=== PATIENT | male | born 1930 | race Caucasian/White ===

== ENCOUNTER 2016-10-02 13:28 | Observation (INO) | payer MEDICARE ==
[~2016-10-02] VITALS: Ht 170.2 cm; Wt 70.1 kg
[2016-10-02] VITALS (7 sets, daily range): BP systolic 101–120; BP diastolic 53–59; PULSE 59–67; RESP 16–20; TEMP 96.4–98; O2SAT 92–100
--- NOTE | 2016-10-02 14:50 | PD ---
HPI Chief Complaint: anemia Time Seen by Provider: 14:38 Travel History International Travel<30 days: No Contact w/Intl Traveler<30days: No History of Present Illness HPI 85 year-old man, no widening medical history, presents referred over from [facility] for low hemoglobin. Review of records shows that he was admitted to [facility] 5 days ago for what sounds like pneumonia. He had been admitted to [facility] on September 24. He's been treated with Levaquin. He apparently was referred to the emergency department today for low hemoglobin. Review of lab shows Hemoglobin 7.3 yesterday, 7.2 on 09/28, it was 9.5 on admission to the hospital. Medical record shows the patient is normally bedridden due to multiple CVAs, has CAD with previous CABG, and has A. fib and is on warfarin. They were trending his INR is at his most recent INR was 1.6 yesterday. History Past Medical History Narrative Medical Multiple CVAs CAD, history of CABG, pacemaker A. fib, on warfarin COPD CHF Hyperlipidemia Hypertension Hypothyroidism Social History Tobacco Use: No Allergies-Medications (Allergen,Severity, Reaction): Coded Allergies: Sulfa (Verified Allergy, Unknown, 10/02/16) Reported Meds & Prescriptions Reported Meds & Active Scripts Active Reported Levothyroxine (Levothyroxine Sodium) 50 Mcg Tab 50 Mcg PO DAILY Rosuvastatin (Rosuvastatin Calcium) 10 Mg Tab 10 Mg PO HS Lisinopril 2.5 Mg Tab 2.5 Mg PO DAILY Metoprolol Tartrate 50 Mg Tab 50 Mg PO BID Warfarin 5 Mg Tab 5 Mg PO DAILY Vitamin D2 (Ergocalciferol) 2,000 Unit Tab 50,000 Units PO WEEKLY Potassium Chloride ER (Potassium Chloride) 20 Meq Tab 20 Meq PO DAILY Digoxin 0.125 Mg Tab 0.125 Mg PO DAILY Furosemide 40 Mg Tab 40 Mg PO DAILY Tamsulosin (Tamsulosin HCl) 0.4 Mg Cap 0.4 Mg PO HS Review of Systems ROS Limitations: Clinical Condition Physical Exam Narrative GENERAL: Chronically ill-appearing 85-year-old man, awake and alert however not really responding to questions. SKIN: Warm and dry. Decreased skin turgor. HEAD: Atraumatic. Normocephalic. EYES: Pupils equal and round. No scleral icterus. No injection or drainage. Conjunctival pallor. ENT: No nasal bleeding or discharge. Mucous membranes pink and moist. NECK: Trachea midline. No JVD. CARDIOVASCULAR: Regular rate and rhythm. No murmur appreciated. RESPIRATORY: No accessory muscle use. Clear to auscultation. Breath sounds equal bilaterally. GASTROINTESTINAL: Abdomen soft, non-tender, nondistended. Hepatic and splenic margins not palpable. MUSCULOSKELETAL: No obvious deformities. Bilateral lower extremity pitting edema, right greater than left. NEUROLOGICAL: Awake and alert. General is weakness but no obvious focal deficits. No facial asymmetry. Data Data Last Documented VS Vital Signs Date Time Temp Pulse Resp B/P Pulse Ox O2 Delivery O2 Flow Rate FiO2 10/02/16 15:09 62 18 97 Nasal Cannula 2 10/02/16 14:45 97.3 101/58 Orders Complete Blood Count With Diff (10/02/16 14:39) Comprehensive Metabolic Panel (10/02/16 14:39) Act Partial Throm Time (Ptt) (10/02/16 14:39) Prothrombin Time / Inr (Pt) (10/02/16 14:39) Iv Access Insert/Monitor (10/02/16 14:39) Type And Screen (10/02/16 14:39) Red Blood Cells (Rbc) (10/02/16 14:39) Place In Observation (10/02/16 ) Blood Product Administration .UPON TRANSFUSION (10/02/16 16:28) Sodium Chlor 0.9% 250 Ml Inj (Ns 250 Ml (10/02/16 16:30) Admit Order (Ed Use Only) (10/02/16 ) Labs Laboratory Tests Test 10/02/16 14:50 White Blood Count 8.5 TH/MM3 Red Blood Count 2.68 MIL/MM3 Hemoglobin 7.9 GM/DL Hematocrit 23.6 % Mean Corpuscular Volume 88.0 FL Mean Corpuscular Hemoglobin 29.6 PG Mean Corpuscular Hemoglobin 33.6 % Concent Red Cell Distribution Width 15.9 % Platelet Count 227 TH/MM3 Mean Platelet Volume 8.4 FL Neutrophils (%) (Auto) 73.0 % Lymphocytes (%) (Auto) 18.4 % Monocytes (%) (Auto) 5.8 % Eosinophils (%) (Auto) 2.6 % Basophils (%) (Auto) 0.2 % Neutrophils # (Auto) 6.2 TH/MM3 Lymphocytes # (Auto) 1.6 TH/MM3 Monocytes # (Auto) 0.5 TH/MM3 Eosinophils # (Auto) 0.2 TH/MM3 Basophils # (Auto) 0.0 TH/MM3 CBC Comment DIFF FINAL Differential Comment Prothrombin Time 17.5 SEC Prothromb Time International 1.6 RATIO Ratio Activated Partial 32.8 SEC Thromboplast Time Sodium Level 145 MEQ/L Potassium Level 4.0 MEQ/L Chloride Level 108 MEQ/L Carbon Dioxide Level 29.8 MEQ/L Anion Gap 7 MEQ/L Blood Urea Nitrogen 38 MG/DL Creatinine 1.46 MG/DL Estimat Glomerular Filtration 46 ML/MIN Rate Random Glucose 98 MG/DL Calcium Level 7.9 MG/DL Total Bilirubin 0.9 MG/DL Aspartate Amino Transf 33 U/L (AST/SGOT) Alanine Aminotransferase 22 U/L (ALT/SGPT) Alkaline Phosphatase 88 U/L Total Protein 5.7 GM/DL Albumin 2.2 GM/DL Blood Type A POSITIVE Antibody Screen NEGATIVE Crossmatch Leukocyte-Reduced Red Blood Cells Blood Bank Comment [facility] Medical Decision Making Medical Screen Exam Complete: Yes Emergency Medical Condition: Yes Interpretation(s) LABS: CBC remarkable for hemoglobin 7.9. Coags remarkable for an INR 1.6 CMP is elevated BUN and creatinine, low protein Differential Diagnosis Anemia, GI bleed, regular but they, infection, other Narrative Course Medical decision making INITIAL: 85-year-old male presents emergency Department with anemia following hospitalization for pneumonia, on warfarin for A. fib, we'll check labs, type and screen, will discuss with Dr. Olson, likely admission for transfusion. FINAL: Spoke with Dr. Olson. Likely admit patient for transfusion of 2 units of blood. GI consult. Order was placed. I spoke to the son on the phone who consented for blood transfusion. Diagnosis Primary Impression: Anemia Qualified Code: D64.9 - Anemia, unspecified type Additional Impression: GI bleed Qualified Code: K92.2 - Gastrointestinal hemorrhage, unspecified gastrointestinal hemorrhage type Admitting Information Admitting Physician Requests: it Joseph Frazier MD Oct 02, 2016 14:50
[2016-10-02 15:09] LABS: HEMATOCRIT 23.6 % (39.0-51.0); HEMO FLAGS DIFF FINAL; MEAN CORPUSCULAR HEMOGLOBIN 29.6 PG (27.0-34.0); MEAN CORPUSCULAR HGB CONC 33.6 % (32.0-36.0); PLATELET COUNT 227 TH/MM3 (150-450); RED BLOOD COUNT 2.68 MIL/MM3 (4.50-5.90); RED CELL DISTRIBUTION WIDTH 15.9 % (11.6-17.2); WHITE BLOOD COUNT 8.5 TH/MM3 (4.0-11.0)
[2016-10-02 15:10] LABS: AUTOMATED NEUTROPHIL # 6.2 TH/MM3 (1.8-7.7); BASOPHIL % 0.2 % (0.0-2.0); EOSINOPHIL # 0.2 TH/MM3 (0-0.4); EOSINOPHIL % 2.6 % (0.0-4.0); LYMPH % 18.4 % (9.0-44.0); LYMPHOCYTE # 1.6 TH/MM3 (1.0-4.8); MONO % 5.8 % (0.0-8.0)
[2016-10-02] MEDS ORDERED: METO50TA PO (15:16)
[2016-10-02] MEDS ORDERED: POTA-163 PO (15:16)
[2016-10-02] MEDS ORDERED: WARF-23 PO (15:16)
[2016-10-02] MEDS ORDERED: LEVO50TA4 PO (15:16)
[2016-10-02] MEDS ORDERED: TAMS0.4C4 PO (15:16)
[2016-10-02] MEDS ORDERED: FURO40TA PO (15:16)
[2016-10-02] MEDS ORDERED: ROSU1TAB6 PO (15:16)
[2016-10-02] MEDS ORDERED: LISI2.5T3 PO (15:16)
[2016-10-02] MEDS ORDERED: DIGO0.12 PO (15:16)
[2016-10-02] MEDS ORDERED: ERGO2000 PO (15:16)
[2016-10-02 15:20] LABS: APTT (PATIENT) 32.8 SEC (24.3-30.1); INTERNATIONAL NORMALIZED RATIO 1.6 RATIO; PROTHROMBIN TIME - PATIENT 17.5 SEC (9.8-11.6)
[2016-10-02 15:34] LABS: ALT (GPT) 22 U/L (12-78); ANION GAP 7 MEQ/L (5-15); AST (GOT) 33 U/L (15-37); BICARBONATE 29.8 MEQ/L (21.0-32.0); BLOOD UREA NITROGEN 38 MG/DL (7-18); CHLORIDE 108 MEQ/L (98-107); GLOMERULAR FILTRATION RATE 46 ML/MIN (>89); SODIUM (NA) 145 MEQ/L (136-145)
[2016-10-02 15:37] LABS: ALKALINE PHOSPHATASE 88 U/L (45-117); TOTAL BILIRUBIN ADULT 0.9 MG/DL (0.2-1.0)
[2016-10-02] MEDS ORDERED: SODIUM CHLOR 0.9% 250 ML INJ 250 ML IV ONE (16:30)
[2016-10-02] MEDS ORDERED: cloNIDine HCL 0.1 MG TAB PO PRN (17:30)
[2016-10-02] MEDS ORDERED: ENALAPRILAT 2.5 MG/2 ML VIAL IV PUSH PRN (17:30)
[2016-10-02] MEDS ORDERED: NALOXONE HCL 0.4 MG/ML AMP IV PRN (17:30)
[2016-10-02] MEDS ORDERED: SODIUM CHLORIDE 0.9% FLUSH 5 ML FLUSH FLUSH PRN (17:30)
[2016-10-02] MEDS ORDERED: BISACODYL 10 MG SUPP PR PRN (17:30)
[2016-10-02] MEDS ORDERED: PILL SPLITTER OTHER PRN (18:15)
[2016-10-02] MEDS: SODIUM CHLORIDE 0.9% FLUSH 5 ML FLUSH FLUSH SCH (21:03)
[2016-10-02] MEDS: ATORVASTATIN 20 MG TAB PO SCH (21:03)
[2016-10-02] MEDS: PANTOPRAZOLE SODIUM 40 MG VIAL IV PUSH SCH (21:03)
[2016-10-02] MEDS: METOPROLOL TARTRATE 50 MG TAB PO SCH (21:03)
[2016-10-02] MEDS: TAMSULOSIN HCL 0.4 MG CAP PO SCH (21:04)
[2016-10-02] MEDS: DEXT 5%-NACL 0.45% 1000 ML INJ 1,000 ML IV SCH (21:12)
[2016-10-02] MEDS: FUROSEMIDE 40 MG/4 ML VIAL IV PUSH SCH (23:18)
[2016-10-03] VITALS (11 sets, daily range): BP systolic 97–126; BP diastolic 53–71; PULSE 59–110; RESP 16–19; TEMP 96.1–97.8; O2SAT 94–100
[2016-10-03] MEDS: LEVOTHYROXINE SODIUM 50 MCG TAB PO SCH (06:14)
[2016-10-03 07:24] LABS: AUTOMATED NEUTROPHIL # 5.7 TH/MM3 (1.8-7.7); BASOPHIL # 0.1 TH/MM3 (0-0.2); EOSINOPHIL # 0.2 TH/MM3 (0-0.4); EOSINOPHIL % 3.1 % (0.0-4.0); HEMATOCRIT 28.1 % (39.0-51.0); HEMO FLAGS DIFF FINAL; LYMPH % 17.5 % (9.0-44.0); LYMPHOCYTE # 1.4 TH/MM3 (1.0-4.8); MEAN CELL VOLUME 86.4 FL (80.0-100.0); MEAN CORPUSCULAR HEMOGLOBIN 29.4 PG (27.0-34.0); MEAN CORPUSCULAR HGB CONC 34.1 % (32.0-36.0); MONO % 6.4 % (0.0-8.0); PLATELET COUNT 216 TH/MM3 (150-450); RED BLOOD COUNT 3.25 MIL/MM3 (4.50-5.90); RED CELL DISTRIBUTION WIDTH 17.3 % (11.6-17.2); WHITE BLOOD COUNT 7.9 TH/MM3 (4.0-11.0)
[2016-10-03 07:45] LABS: BICARBONATE 29.8 MEQ/L (21.0-32.0)
[2016-10-03 08:05] LABS: CALCIUM-PROTEIN CORRECTED 8.1 MG/DL (8.5-10.1)
--- NOTE | 2016-10-03 08:57 | HHI.HP ---
History of Present Illness Primary Care Physician Leodan Olson MD Admission Diagnosis Anemia, GI BLeed Diagnoses: (1) Anemia (2) GI bleed History of Present Illness 85 Y CM. AT SNF FOR REHAB. HAS DONE VERY POORLY AND MINIMAL PARTICIPATION AT THE SNF DUE TO DEBILITY AND FTT. FOUND WITH GIB AND HGB 7.2 AT SNF. SENT TO ER. ER MD STARTED TRANSFUSION. PT W MINIMAL COMPLAINTS YET IS POOR HISTORIAN DUE TO DEMENTIA. Review of Systems ROS Limitations: Clinical Condition, Altered Mental Status, Uncooperative, Hearing Impaired, Speech Impaired, Poor Historian Psychiatric: COMPLAINS OF: Confusion Past Family Social History Allergies: Coded Allergies: Sulfa (Verified Allergy, Unknown, 10/02/16) Past Medical History Past Medical History Narrative Medical Multiple CVAs CAD, history of CABG, pacemaker A. fib, on warfarin COPD CHF Hyperlipidemia Hypertension Hypothyroidism Social History Tobacco Use: No Allergies-Medications Allergies-Medications (Allergen,Severity, Reaction): Coded Allergies: Sulfa (Verified Allergy, Unknown, 10/02/16) Reported Meds & Prescriptions Reported Meds & Active Scripts Active Reported Levothyroxine (Levothyroxine Sodium) 50 Mcg Tab 50 Mcg PO DAILY Rosuvastatin (Rosuvastatin Calcium) 10 Mg Tab 10 Mg PO HS Lisinopril 2.5 Mg Tab 2.5 Mg PO DAILY Metoprolol Tartrate 50 Mg Tab 50 Mg PO BID Warfarin 5 Mg Tab 5 Mg PO DAILY Vitamin D2 (Ergocalciferol) 2,000 Unit Tab 50,000 Units PO WEEKLY Potassium Chloride ER (Potassium Chloride) 20 Meq Tab 20 Meq PO DAILY Digoxin 0.125 Mg Tab 0.125 Mg PO DAILY Furosemide 40 Mg Tab 40 Mg PO DAILY Tamsulosin (Tamsulosin HCl) 0.4 Mg Cap 0.4 Mg PO HS Family History NC Social History NC Physical Exam Vital Signs Vital Signs Date Time Temp Pulse Resp B/P Pulse Ox O2 Delivery O2 Flow Rate FiO2 10/03/16 07:35 96.1 60 18 97 10/03/16 02:40 97.1 60 16 97/69 99 10/03/16 01:30 60 10/03/16 00:15 96.4 60 18 104/61 97 10/02/16 23:50 96.4 59 16 109/53 98 10/02/16 22:40 98 Nasal Cannula 1.00 10/02/16 20:00 96.4 62 18 109/59 100 10/02/16 18:41 97.9 62 20 117/59 97 Nasal Cannula 2 10/02/16 18:15 98.0 67 20 120/56 100 Nasal Cannula 2 10/02/16 17:30 100 Nasal Cannula 1.00 10/02/16 15:09 62 18 97 Nasal Cannula 2 10/02/16 14:45 97.3 62 18 101/58 92 Physical Exam GENERAL: chronically ill appearing, elder male, in no apparent distress. SKIN: No rashes, ecchymoses or lesions. Cool and dry. r heel blister HEAD: Atraumatic. Normocephalic. No temporal or scalp tenderness. EYES: Pupils equal round and reactive. Extraocular motions intact. No scleral icterus. No injection or drainage. ENT: Nose without bleeding, purulent drainage or septal hematoma. Throat without erythema, tonsillar hypertrophy or exudate. Uvula midline. Airway patent. NECK: Trachea midline. No JVD or lymphadenopathy. Supple, nontender, no meningeal signs. CARDIOVASCULAR: Regular rate and rhythm without murmurs, gallops, or rubs. RESPIRATORY: Clear to auscultation. Breath sounds equal bilaterally. No wheezes , rales, or rhonchi. GASTROINTESTINAL: Abdomen soft, non-tender, nondistended. No hepato-splenomegaly , or palpable masses. No guarding. MUSCULOSKELETAL: Extremities without clubbing, cyanosis, or edema. No joint tenderness, effusion, or edema noted. No calf tenderness. Negative Homans sign bilaterally. NEUROLOGICAL: Awake and alert. Cranial nerves II through XII intact. Motor and sensory grossly within normal limits. 1 out of 5 muscle strength in all muscle groups. Aphasic. Laboratory Laboratory Tests Test 10/02/16 10/02/16 10/03/16 14:50 15:45 06:22 White Blood Count 8.5 7.9 Red Blood Count 2.68 3.25 Hemoglobin 7.9 9.6 Hematocrit 23.6 28.1 Mean Corpuscular Volume 88.0 86.4 Mean Corpuscular Hemoglobin 29.6 29.4 Mean Corpuscular Hemoglobin 33.6 34.1 Concent Red Cell Distribution Width 15.9 17.3 Platelet Count 227 216 Mean Platelet Volume 8.4 8.1 Neutrophils (%) (Auto) 73.0 72.0 Lymphocytes (%) (Auto) 18.4 17.5 Monocytes (%) (Auto) 5.8 6.4 Eosinophils (%) (Auto) 2.6 3.1 Basophils (%) (Auto) 0.2 1.0 Neutrophils # (Auto) 6.2 5.7 Lymphocytes # (Auto) 1.6 1.4 Monocytes # (Auto) 0.5 0.5 Eosinophils # (Auto) 0.2 0.2 Basophils # (Auto) 0.0 0.1 CBC Comment DIFF FINAL DIFF FINAL Differential Comment Prothrombin Time 17.5 Prothromb Time International 1.6 Ratio Activated Partial 32.8 Thromboplast Time Sodium Level 145 144 Potassium Level 4.0 4.0 Chloride Level 108 107 Carbon Dioxide Level 29.8 29.8 Anion Gap 7 7 Blood Urea Nitrogen 38 34 Creatinine 1.46 1.47 Estimat Glomerular Filtration 46 45 Rate Random Glucose 98 90 Calcium Level 7.9 7.3 Total Bilirubin 0.9 Aspartate Amino Transf 33 (AST/SGOT) Alanine Aminotransferase 22 (ALT/SGPT) Alkaline Phosphatase 88 Total Protein 5.7 5.6 Albumin 2.2 Blood Type A POSITIVE A POSITIVE Antibody Screen NEGATIVE Crossmatch Leukocyte-Reduced Red Blood Cells Blood Bank Comment Protein Corrected Calcium 8.1 Result Diagram: 10/03/1662110/03/16621 Assessment and Plan Assessment and Plan GIB BLOOD LOSS ANEMIA V TACH Multiple CVAs CAD, history of CABG, pacemaker A. fib, on warfarin COPD CHF Hyperlipidemia Hypertension Hypothyroidism PLAN: TRANSFUSE GI CONSULT IV PROTONIX HOLD COUMADIN, SCD'S AND TEDS. NPO IVF CARDIOLOGY CONSULT FOR V TACH PT OT ST OBS ADMIT Problem Qualifiers (1) Anemia: Qualified Code: D64.9 - Anemia, unspecified type (2) GI bleed: Qualified Code: K92.2 - Gastrointestinal hemorrhage, unspecified gastrointestinal hemorrhage type Leodan Olson MD Oct 03, 2016 08:57
[2016-10-03] MEDS ORDERED: FUROSEMIDE 40 MG TAB PO SCH (09:00)
[2016-10-03] MEDS: DIGOXIN 0.125 MG TAB PO SCH (10:15)
[2016-10-03] MEDS: POTASSIUM CHLORIDE 20 MEQ CONTROLLED RELEASE TAB PO SCH (10:15)
[2016-10-03] MEDS: PANTOPRAZOLE SODIUM 40 MG VIAL IV PUSH SCH ×2 (10:15→20:59)
[2016-10-03] MEDS: METOPROLOL TARTRATE 50 MG TAB PO SCH ×2 (10:16→21:00)
[2016-10-03] MEDS: LISINOPRIL 5 MG TAB PO SCH (10:16)
[2016-10-03] MEDS: FUROSEMIDE 40 MG/4 ML VIAL IV PUSH SCH ×2 (10:16→17:11)
[2016-10-03] MEDS: SODIUM CHLORIDE 0.9% FLUSH 5 ML FLUSH FLUSH SCH ×2 (10:17→21:00)
--- NOTE | 2016-10-03 11:23 | PD.CONS ---
HPI History of Present Illness This is a 85 year old who is extremely poor historian with past medical history of Dementia, COPD, CAD, CABG, A-fib on Coumadin who was sent here from SNF for low hgb of 7.2. Patient had recent admission in [facility] for pneumonia and has been at rehab. Per nurse , patient had a BM last night and that was normal in color with no signs of bleeding, no melena or hematochezia. Patient himself denies nausea, vomiting, abdomen pain or bleeding. Hgb responded beautifully to 2 units of blood, hgb today 9.6. PFSH Past Medical History Per EMR Multiple CVAs CAD, history of CABG, pacemaker A. fib, on warfarin COPD CHF Hyperlipidemia Hypertension Hypothyroidism Past Surgical History as above Coded Allergies: Sulfa (Verified Allergy, Unknown, 10/02/16) Medications Current Medications Medications (Trade) Dose Ordered Sig/Kermit Route Start Time Stop Time Status Last Admin (Lanoxin) 0.125 mg DAILY PO 10/03/16 09:00 10/03/16 10:15 (Synthroid) 50 mcg DAILY@06 PO 10/03/16 06:00 10/03/16 06:14 (Prinivil) 2.5 mg DAILY PO 10/03/16 09:00 10/03/16 10:16 (Lopressor) 50 mg BID PO 10/02/16 21:00 10/03/16 10:16 (KCl) 20 meq DAILY PO 10/03/16 09:00 10/03/16 10:15 (Flomax) 0.4 mg HS PO 10/02/16 21:00 10/02/16 21:04 (Lipitor) 20 mg HS PO 10/02/16 21:00 10/02/16 21:03 (NS Flush) 2 ml UNSCH PRN FLUSH 10/02/16 17:30 (NS Flush) 2 ml BID FLUSH 10/02/16 21:00 10/03/16 10:17 (Dulcolax Supp) 10 mg DAILY PRN ND 10/02/16 17:30 (Narcan Inj) 0.4 mg UNSCH PRN IV 10/02/16 17:30 Clonidine 0.1 mg 0.1 mg Q6H PRN PO 10/02/16 17:30 (D5W-1/2 NS 1000 ml Inj) 1,000 ml @ 30 mls/hr Q24H IV 10/02/16 18:00 10/02/16 21:12 (Vasotec Inj) 2.5 mg Q6H PRN IV PUSH 10/02/16 17:30 (Lasix Inj) 40 mg BID@09,18 IV PUSH 10/02/16 18:00 10/03/16 10:16 (Protonix Inj) 40 mg BID IV PUSH 10/02/16 21:00 10/03/16 10:15 (Pill Splitter) 1 ea UNSCH PRN OTHER 10/02/16 18:15 Family History Non contributory Social History No alcohol No smoking Review of Systems Constitutional: DENIES: Fever, Chills Endocrine: DENIES: Polyuria Eyes: DENIES: Photosensitivity Ears, nose, mouth, throat: DENIES: Hoarseness Respiratory: DENIES: Shortness of breath Cardiovascular: DENIES: Lower Extremity Edema Gastrointestinal: DENIES: Abdominal pain, Black stools, Bloody stools, Constipation, Diarrhea, Nausea, Vomiting, Difficulty Swallowing, Anorexia, Odynophagia, Swelling of Abdomen, Heartburn, Hematemesis Genitourinary: DENIES: Hematuria Integumentary: DENIES: Jaundice Hematologic/lymphatic: COMPLAINS OF: Bruising Immunologic/allergic: DENIES: Eczema Neurologic: DENIES: Headache Psychiatric: DENIES: Agitation GI Exam Vitals I&O Vital Signs Date Time Temp Pulse Resp B/P Pulse Ox O2 Delivery O2 Flow Rate FiO2 10/03/16 09:35 96 Nasal Cannula 1.00 10/03/16 08:00 96.2 59 16 112/62 95 10/03/16 07:35 96.1 60 18 97 10/03/16 02:40 97.1 60 16 97/69 99 10/03/16 01:30 60 10/03/16 00:15 96.4 60 18 104/61 97 10/02/16 23:50 96.4 59 16 109/53 98 10/02/16 22:40 98 Nasal Cannula 1.00 10/02/16 20:00 96.4 62 18 109/59 100 10/02/16 18:41 97.9 62 20 117/59 97 Nasal Cannula 2 10/02/16 18:15 98.0 67 20 120/56 100 Nasal Cannula 2 10/02/16 17:30 100 Nasal Cannula 1.00 10/02/16 15:09 62 18 97 Nasal Cannula 2 10/02/16 14:45 97.3 62 18 101/58 92 I/O 10/02/16 10/02/16 10/02/16 10/03/16 10/03/16 10/03/16 07:00 15:00 23:00 07:00 15:00 23:00 Intake Total 320 ml 560 ml Output Total 800 ml 2250 ml Balance -480 ml -1690 ml Intake IV Total 20 ml 210 ml Packed Cells 300 ml 350 ml Output Urine Total 800 ml 2250 ml Laboratory Test 10/02/16 10/02/16 10/03/16 14:50 15:45 06:22 White Blood Count 8.5 TH/MM3 7.9 TH/MM3 Red Blood Count 2.68 MIL/MM3 3.25 MIL/MM3 Hemoglobin 7.9 GM/DL 9.6 GM/DL Hematocrit 23.6 % 28.1 % Mean Corpuscular Volume 88.0 FL 86.4 FL Mean Corpuscular Hemoglobin 29.6 PG 29.4 PG Mean Corpuscular Hemoglobin 33.6 % 34.1 % Concent Red Cell Distribution Width 15.9 % 17.3 % Platelet Count 227 TH/MM3 216 TH/MM3 Mean Platelet Volume 8.4 FL 8.1 FL Neutrophils (%) (Auto) 73.0 % 72.0 % Lymphocytes (%) (Auto) 18.4 % 17.5 % Monocytes (%) (Auto) 5.8 % 6.4 % Eosinophils (%) (Auto) 2.6 % 3.1 % Basophils (%) (Auto) 0.2 % 1.0 % Neutrophils # (Auto) 6.2 TH/MM3 5.7 TH/MM3 Lymphocytes # (Auto) 1.6 TH/MM3 1.4 TH/MM3 Monocytes # (Auto) 0.5 TH/MM3 0.5 TH/MM3 Eosinophils # (Auto) 0.2 TH/MM3 0.2 TH/MM3 Basophils # (Auto) 0.0 TH/MM3 0.1 TH/MM3 CBC Comment DIFF FINAL DIFF FINAL Differential Comment Prothrombin Time 17.5 SEC Prothromb Time International 1.6 RATIO Ratio Activated Partial 32.8 SEC Thromboplast Time Sodium Level 145 MEQ/L 144 MEQ/L Potassium Level 4.0 MEQ/L 4.0 MEQ/L Chloride Level 108 MEQ/L 107 MEQ/L Carbon Dioxide Level 29.8 MEQ/L 29.8 MEQ/L Anion Gap 7 MEQ/L 7 MEQ/L Blood Urea Nitrogen 38 MG/DL 34 MG/DL Creatinine 1.46 MG/DL 1.47 MG/DL Estimat Glomerular Filtration 46 ML/MIN 45 ML/MIN Rate Random Glucose 98 MG/DL 90 MG/DL Calcium Level 7.9 MG/DL 7.3 MG/DL Total Bilirubin 0.9 MG/DL Aspartate Amino Transf 33 U/L (AST/SGOT) Alanine Aminotransferase 22 U/L (ALT/SGPT) Alkaline Phosphatase 88 U/L Total Protein 5.7 GM/DL 5.6 GM/DL Albumin 2.2 GM/DL Blood Type A POSITIVE A POSITIVE Antibody Screen NEGATIVE Crossmatch Leukocyte-Reduced Red Blood Cells Blood Bank Comment Protein Corrected Calcium 8.1 MG/DL Physical Examination HEENT: normocephalic; atraumatic; no jaundice. NECK: Neck is supple, no JVD, no lymphadenopathy. CHEST: Diminished CARDIAC: Regular rate and rhythm with no murmur gallop or rubs. ABDOMEN: Soft, nondistended, nontender; no hepatosplenomegaly; bowel sounds are present in all four quadrants. EXTREMITIES: No clubbing, cyanosis, or edema. SKIN: ecchymotic TONGUE LINING STITCHER: alert and oriented . Assessment and Plan Plan - Anemia/ no previous records for comparison This is a 85 year old who is extremely poor historian with past medical history of Dementia, COPD, CAD, CABG, A-fib on Coumadin who was sent here from [facility] for low hgb of 7.2. Patient had recent admission in [facility] for pneumonia and has been at rehab. Per nurse , patient had a BM last night and that was normal in color with no signs of bleeding, no melena or hematochezia. Patient himself denies nausea, vomiting, abdomen pain or bleeding. Hgb responded beautifully to 2 units of blood, hgb today 9.6. - Chronic kidney disease - hx of Dementia, COPD, CAD, CABG, A-fib on Coumadin per attending Plan: - Clear liquids - Poor function status, no signs of bleeding, good response to transfusion, will hold off on any invasive procedure unless actively bleeding - Monitor hh - Transfuse as needed - Cont. PPI - Supportive care - Patient seen and examined by Dr. Martinez and myself and this note is written on his behalf. Ander Smith Oct 03, 2016 11:23
--- NOTE | 2016-10-03 12:31 | MB ---
cc: MAKI CARRANZA DO DATE OF CONSULTATION 10/03/2016 REASON FOR CONSULTATION Possible nonsustained VT HISTORY OF PRESENT ILLNESS Rustam Kay is an 85-year-old male who presented to [facility] emergency room on October 02, 2016 from rehab due to a hemoglobin of 7.2. He is an extremely poor historian due to dementia. He recently was at [facility] in [facility] for pneumonia and then was in rehab. He was found to not be doing much in rehab and the concern was fatigue. Blood work was done and he was found to have a hemoglobin of 7.2. Because the patient is a poor historian, history is taken from the chart and nursing. Per nursing, the patient has had no signs of bleeding. He received two units of packed red blood cells which increased his hemoglobin from 7.2-9.6. At 08:00 a.m. on October 03, 2016 the patient went into a wide complex tachycardia which was irregular in nature. It was felt that this may be nonsustained ventricular tachycardia and I was consulted as such. In speaking to nursing, the patient was asymptomatic at this time. PAST MEDICAL HISTORY 1. Multiple CVA's 2. Coronary artery disease 3. Chronic atrial fibrillation on Coumadin anticoagulation. 4. COPD 5. Congestive heart failure 6. Hyperlipidemia 7. Hypertension 8. Hypothyroidism PAST SURGICAL HISTORY 1. History of coronary artery bypass grafting with unknown anatomy. 2. History of pacemaker placement. ALLERGIES SULFA MEDICATIONS 1. Flomax 0.4 mg every night 2. Lisinopril 2.5 mg daily 3. Coumadin 5 mg daily 4. Metoprolol tartrate 50 mg b.i.d. 5. Digoxin 0.125 mg daily 6. Crestor 10 mg every night 7. Lasix 40 mg daily 8. Potassium chloride 20 mEq daily 9. Synthroid 50 mcg daily FAMILY HISTORY Unknown at this time due to the patient's current state. SOCIAL HISTORY No known history of alcohol or tobacco abuse. REVIEW OF SYSTEMS Difficult to determine due to the patient's current dementia, but denies chest pain or shortness of breath. PHYSICAL EXAMINATION VITAL SIGNS: Temperature 96.2, heart rate 60, blood pressure 112/62, respirations 16, pulse ox 96% on one liter. GENERAL: In general, the patient appears in no acute distress, alert, awake, but pleasantly demented. HEAD, EYES, EARS, NOSE, AND THROAT: Extraocular muscles intact. Mucous membranes moist. NECK: Supple. No JVD at 45 degrees. No carotid bruits heard bilaterally. Carotid upstroke is brisk in nature. HEART: Regular rate and rhythm. Positive first and second heart sounds with no murmurs, gallops or rubs. LUNGS: Decreased breath sounds bilateral bases. ABDOMEN: Soft, nontender and nondistended with no organomegaly noted. EXTREMITIES: Show trace edema bilaterally. SKIN: Warm, dry and intact. NEUROLOGIC: Difficult to determine, but no gross abnormalities noted. LABORATORY FINDINGS Hemoglobin 7.9 increasing to 9.6 after two units. Platelets 216. INR 1.6. Potassium 4.0, BUN 34, creatinine 1.47. Telemetry (October 03, 2016) predominately demand paced rhythm with underlying atrial fibrillation, occasional PVC versus aberrancy, run of wide complex tachycardia which is irregular in nature most likely corresponding to atrial fibrillation with rapid ventricular response. IMPRESSION 1. Wide complex tachycardia which is irregular most likely atrial fibrillation with a right bundle branch pattern. 2. Chronic atrial fibrillation on Coumadin anticoagulation. 3. Subtherapeutic INR. 4. Anemia of unknown cause. 5. Significant dementia 6. Coronary artery disease with a history of coronary artery bypass grafting. 7. Known implantation of pacemaker versus ICD 8. Multiple CVAs 9. COPD 10. Hyperlipidemia 11. Hypertension RECOMMENDATIONS 1. Mr. Kay's wide complex tachycardia looks to be more likely atrial fibrillation with rapid ventricular response. While in the hospital, we will continue to follow on telemetry. We will continue him on his beta-marta and digoxin. 2. No further workup is needed from a cardiovascular standpoint. If he does have any further episodes of wide complex tachycardia which is irregular in nature, we may need to increase his beta marta and consider having his pacemaker interrogated. 3. Currently his Coumadin is being held due to his anemia and consideration of further testing, but at this time, it appears that we will take conservative management from a GI standpoint. 4. Further a recommendations based on hospital course. Thank you for allowing me to see Rustam Kay. If there are any questions, please do not hesitate to call. Vincdawna ANGUIANO/DJL /11:46 AM /12:13 PM
[2016-10-03] MEDS: ATORVASTATIN 20 MG TAB PO SCH (20:59)
[2016-10-03] MEDS: TAMSULOSIN HCL 0.4 MG CAP PO SCH (20:59)
[2016-10-04] VITALS (8 sets, daily range): BP systolic 94–137; BP diastolic 54–72; PULSE 54–112; RESP 16–20; TEMP 96.8–98; O2SAT 95–100
[2016-10-04] MEDS: DEXT 5%-NACL 0.45% 1000 ML INJ 1,000 ML IV SCH (05:44)
[2016-10-04] MEDS: LEVOTHYROXINE SODIUM 50 MCG TAB PO SCH (05:44)
[2016-10-04 08:02] LABS: AUTOMATED NEUTROPHIL # 5.5 TH/MM3 (1.8-7.7); BASOPHIL # 0.1 TH/MM3 (0-0.2); EOSINOPHIL # 0.2 TH/MM3 (0-0.4); EOSINOPHIL % 2.7 % (0.0-4.0); HEMATOCRIT 28.2 % (39.0-51.0); HEMO FLAGS DIFF FINAL; LYMPH % 20.6 % (9.0-44.0); LYMPHOCYTE # 1.6 TH/MM3 (1.0-4.8); MEAN CELL VOLUME 85.8 FL (80.0-100.0); MEAN CORPUSCULAR HEMOGLOBIN 29.2 PG (27.0-34.0); MONO % 5.9 % (0.0-8.0); NEUT % 69.8 % (16.0-70.0); PLATELET COUNT 223 TH/MM3 (150-450); RED BLOOD COUNT 3.28 MIL/MM3 (4.50-5.90); RED CELL DISTRIBUTION WIDTH 17.4 % (11.6-17.2); WHITE BLOOD COUNT 7.8 TH/MM3 (4.0-11.0)
[2016-10-04 08:32] LABS: BICARBONATE 31.4 MEQ/L (21.0-32.0); POTASSIUM 3.8 MEQ/L (3.5-5.1)
[2016-10-04] MEDS: LISINOPRIL 5 MG TAB PO SCH (09:00)
[2016-10-04] MEDS: DIGOXIN 0.125 MG TAB PO SCH (09:00)
[2016-10-04] MEDS: METOPROLOL TARTRATE 50 MG TAB PO SCH (09:00)
[2016-10-04] MEDS: POTASSIUM CHLORIDE 20 MEQ CONTROLLED RELEASE TAB PO SCH (10:04)
[2016-10-04] MEDS: SODIUM CHLORIDE 0.9% FLUSH 5 ML FLUSH FLUSH SCH (10:05)
[2016-10-04] MEDS: FUROSEMIDE 40 MG/4 ML VIAL IV PUSH SCH (10:05)
[2016-10-04] MEDS: PANTOPRAZOLE SODIUM 40 MG VIAL IV PUSH SCH (10:05)
--- NOTE | 2016-10-04 12:16 | HHI.GIFU ---
Subjective Remarks Resting in bed. No n/v. No abdominal pain. No obvious blood loss. Objective Vitals I&O Vital Signs Date Time Temp Pulse Resp B/P Pulse Ox O2 Delivery O2 Flow Rate FiO2 10/04/16 11:50 98.0 59 20 97/54 100 10/04/16 10:19 97 Nasal Cannula 2.00 10/04/16 07:50 97.5 54 20 100/54 97 10/04/16 04:07 96.8 70 16 107/68 96 10/04/16 00:00 97.8 112 18 120/72 95 10/03/16 21:00 96 Nasal Cannula 2.00 10/03/16 20:00 96.6 110 18 118/71 94 10/03/16 20:00 72 10/03/16 16:00 97.8 60 18 114/59 100 10/03/16 13:00 96.2 60 19 126/53 100 I/O 10/03/16 10/03/16 10/03/16 10/04/16 10/04/16 10/04/16 07:00 15:00 23:00 07:00 15:00 23:00 Intake Total 560 ml 360 ml 682 ml 521 ml Output Total 2250 ml 800 ml 1400 ml 400 ml Balance -1690 ml -440 ml -718 ml 121 ml Intake Oral 360 ml 450 ml 150 ml IV Total 210 ml 232 ml 371 ml Packed Cells 350 ml Output Urine Total 2250 ml 800 ml 1400 ml 400 ml # Bowel Movements 1 0 Laboratory Laboratory Tests Test 10/04/16 07:19 White Blood Count 7.8 Red Blood Count 3.28 Hemoglobin 9.6 Hematocrit 28.2 Mean Corpuscular Volume 85.8 Mean Corpuscular Hemoglobin 29.2 Mean Corpuscular Hemoglobin 34.0 Concent Red Cell Distribution Width 17.4 Platelet Count 223 Mean Platelet Volume 8.0 Neutrophils (%) (Auto) 69.8 Lymphocytes (%) (Auto) 20.6 Monocytes (%) (Auto) 5.9 Eosinophils (%) (Auto) 2.7 Basophils (%) (Auto) 1.0 Neutrophils # (Auto) 5.5 Lymphocytes # (Auto) 1.6 Monocytes # (Auto) 0.5 Eosinophils # (Auto) 0.2 Basophils # (Auto) 0.1 CBC Comment DIFF FINAL Differential Comment Sodium Level 143 Potassium Level 3.8 Chloride Level 104 Carbon Dioxide Level 31.4 Anion Gap 8 Blood Urea Nitrogen 34 Creatinine 1.36 Estimat Glomerular Filtration 50 Rate Random Glucose 87 Calcium Level 7.6 Physical Exam HEENT: Normocephalic; atraumatic; no jaundice. NECK: Neck is supple, no JVD, no lymphadenopathy. CHEST: Diminished, respirations even/unlabored. CARDIAC: RRR. ABDOMEN: Soft, nondistended, nontender; no hepatosplenomegaly; bowel sounds are present in all four quadrants. EXTREMITIES: No clubbing, cyanosis, or edema. 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 This is a 85 year old who is extremely poor historian with past medical history of Dementia, COPD, CAD, CABG, A-fib on Coumadin who was sent here from SNF for low hgb of 7.2. Patient had recent admission in [facility] for pneumonia and has been at rehab. Per nurse , patient had a BM last night and that was normal in color with no signs of bleeding, no melena or hematochezia. Patient himself denies nausea, vomiting, abdomen pain or bleeding. No prior records for comparison. HH has remained stable after blood transfusion. No plans for invasive procedures unless active bleeding. - Chronic kidney disease, Hx Dementia, COPD, CAD, CABG, A-fib on Coumadin per attending Plan: - Heart healthy soft diet with thin liquids - Monitor hh - Transfuse as needed - Cont. PPI - Cont. ST - Will hold on any endoscopic procedures unless there is evidence of active bleeding. Currently hh stable without any signs of active bleeding - Patient seen and examined by Dr. Martinez and myself and this note is written on his behalf. Catherine Neal Oct 04, 2016 12:16
[2016-10-04] MEDS ORDERED: PANT40TA3 PO (12:20)
[2016-10-04] MEDS ORDERED: ASPI81TA11 PO (12:20)
--- NOTE | 2016-10-04 12:21 | HHI.DCPOC ---
Discharge Care Plan Diagnosis: (1) Anemia (2) GI bleed Goals to Promote Your Health * To prevent worsening of your condition and complications * To maintain your health at the optimal level Directions to Meet Your Goals Take your medications as prescribed Follow your dietary instruction Follow activity as directed Keep your appointments as scheduled Take your immunizations and boosters as scheduled If your symptoms worsen call your PCP, if no PCP go to Urgent Care Center or Emergency Room Smoking is Dangerous to Your Health. Avoid second hand smoke Call the 24-hour hour crisis hotline for domestic abuse at Leodan Olson MD Oct 04, 2016 12:21
--- NOTE | 2016-10-04 12:22 | HHI.DS ---
Discharge Summary Admission Date Oct 02, 2016 at 16:31 Admitting Diagnosis Anemia, GI BLeed (1) Anemia (2) GI bleed Brief History 85 Y CM. AT SNF FOR REHAB. HAS DONE VERY POORLY AND MINIMAL PARTICIPATION AT THE SNF DUE TO DEBILITY AND FTT. FOUND WITH GIB AND HGB 7.2 AT SNF. SENT TO ER. ER STARTED TRANSFUSION. PT W MINIMAL COMPLAINTS YET IS POOR HISTORIAN DUE TO DEMENTIA. CBC/BMP: 10/04/16 0719 10/04/16 0719 Significant Findings Laboratory Tests Test 10/02/16 10/03/16 10/04/16 14:50 06:22 07:19 Red Blood Count 2.68 MIL/MM3 3.25 MIL/MM3 3.28 MIL/MM3 (4.50-5.90) (4.50-5.90) (4.50-5.90) Hemoglobin 7.9 GM/DL 9.6 GM/DL 9.6 GM/DL (13.0-17.0) (13.0-17.0) (13.0-17.0) Hematocrit 23.6 % 28.1 % 28.2 % (39.0-51.0) (39.0-51.0) (39.0-51.0) Neutrophils (%) (Auto) 73.0 % 72.0 % (16.0-70.0) (16.0-70.0) Prothrombin Time 17.5 SEC (9.8-11.6) Activated Partial 32.8 SEC Thromboplast Time (24.3-30.1) Chloride Level 108 MEQ/L (98-107) Blood Urea Nitrogen 38 MG/DL (7-18) 34 MG/DL (7-18) 34 MG/DL (7-18) Creatinine 1.46 MG/DL 1.47 MG/DL 1.36 MG/DL (0.60-1.30) (0.60-1.30) (0.60-1.30) Estimat Glomerular Filtration 46 ML/MIN (>89) 45 ML/MIN (>89) 50 ML/MIN (>89) Rate Calcium Level 7.9 MG/DL 7.3 MG/DL 7.6 MG/DL (8.5-10.1) (8.5-10.1) (8.5-10.1) Total Protein 5.7 GM/DL 5.6 GM/DL (6.4-8.2) (6.4-8.2) Albumin 2.2 GM/DL (3.4-5.0) Red Cell Distribution Width 17.3 % 17.4 % (11.6-17.2) (11.6-17.2) Protein Corrected Calcium 8.1 MG/DL (8.5-10.1) PE at Discharge GENERAL: SKIN: Warm and dry. HEAD: Atraumatic. Normocephalic. EYES: Pupils equal and round. No scleral icterus. No injection or drainage. ENT: No nasal bleeding or discharge. Mucous membranes pink and moist. NECK: Trachea midline. No JVD. CARDIOVASCULAR: Regular rate and rhythm. RESPIRATORY: No accessory muscle use. Clear to auscultation. Breath sounds equal bilaterally. GASTROINTESTINAL: Abdomen soft, non-tender, nondistended. Hepatic and splenic margins not palpable. MUSCULOSKELETAL: Extremities without clubbing, cyanosis, or edema. No obvious deformities. NEUROLOGICAL: Awake and alert. No obvious cranial nerve deficits. Motor grossly within normal limits. 1 out of 5 muscle strength in the arms and legs. Stable aphasic speech. PSYCHIATRIC: Appropriate mood and affect; confused Hospital Course 85 y cm, admit with - GIB BLOOD LOSS ANEMIA V TACH, AFIB PER IMMIGRATION JUDGE Multiple CVAs CAD, history of CABG, pacemaker A. fib, on warfarin COPD CHF Hyperlipidemia Hypertension Hypothyroidism HOSPITAL COURSE AND PLAN WAS - TRANSFUSED GI CONSULT IV PROTONIX HOLD COUMADIN, SCD'S AND TEDS. CHANGE TO ASA D/T FALL RISK AND GIB NPO, TAKING PO WELL IVF CARDIOLOGY CONSULT FOR V TACH PT OT ST DC TO SNF WITH WHAT APPEARS WILL BE LAST EFFORT AT REHAB, PT IS OBVIOUSLY END OF LIFE, WILL NEED HOSPICE SOON. Discharge Disposition: Discharge to SNF Discharge Instructions DIET: Follow Instructions for: As Tolerated, No Restrictions Speech Therapy-Diet Recommenda: Mechanical Soft Activities you can perform: Regular-No Restrictions Follow up Referrals: PCP Follow-up - 2-3 Days New Medications: Aspirin DR (Aspirin EC) 81 Mg Tabdr 81 MG PO DAILY START IN ONE WEEK, HOLD FOR GIB AF #30 Ref 11 TAB Pantoprazole (Pantoprazole) 40 Mg Tab 40 MG PO DAILY Reflux Days 90 Ref 0 TAB Continued Medications: Digoxin (Digoxin) 0.125 Mg Tab 0.125 MG PO DAILY Regulate Heart Beat Ref 0 TAB Ergocalciferol (Vitamin D2) 2,000 Unit Tab 77370 UNITS PO WEEKLY Nutritional Supplement Ref 0 TAB Furosemide (Furosemide) 40 Mg Tab 40 MG PO DAILY Ref 0 TAB Levothyroxine (Levothyroxine) 50 Mcg Tab 50 MCG PO DAILY Thyroid Ref 0 TAB Lisinopril (Lisinopril) 2.5 Mg Tab 2.5 MG PO DAILY Ref 0 TAB Metoprolol Tartrate (Metoprolol Tartrate) 50 Mg Tab 50 MG PO BID Ref 0 TAB Potassium Chloride ER (Potassium Chloride ER) 20 Meq Tab 20 MEQ PO DAILY Electrolyte Replacement Ref 0 TAB Rosuvastatin (Rosuvastatin) 10 Mg Tab 10 MG PO HS Cholesterol Management Ref 0 TAB Tamsulosin (Tamsulosin) 0.4 Mg Cap 0.4 MG PO HS Manage Prostate Problems Ref 0 CAP Discontinued Medications: Warfarin (Warfarin) 5 Mg Tab 5 MG PO DAILY Blood Clot Prevention Ref 0 TAB Leodan Olson MD Oct 04, 2016 12:22
--- NOTE | 2016-10-04 12:42 | PD.CARD.PN ---
Subjective Subjective Remarks Patient seen earlier, no complaints by pleasantly demented Objective Medications Current Medications Medications (Trade) Dose Ordered Sig/Kermit Route Start Time Stop Time Status Last Admin (Lanoxin) 0.125 mg DAILY PO 10/03/16 09:00 10/03/16 10:15 (Synthroid) 50 mcg DAILY@06 PO 10/03/16 06:00 10/04/16 05:44 (Prinivil) 2.5 mg DAILY PO 10/03/16 09:00 10/03/16 10:16 (Lopressor) 50 mg BID PO 10/02/16 21:00 10/03/16 21:00 (KCl) 20 meq DAILY PO 10/03/16 09:00 10/04/16 10:04 (Flomax) 0.4 mg HS PO 10/02/16 21:00 10/03/16 20:59 (Lipitor) 20 mg HS PO 10/02/16 21:00 10/03/16 20:59 (NS Flush) 2 ml UNSCH PRN FLUSH 10/02/16 17:30 (NS Flush) 2 ml BID FLUSH 10/02/16 21:00 10/04/16 10:05 (Dulcolax Supp) 10 mg DAILY PRN SC 10/02/16 17:30 (Narcan Inj) 0.4 mg UNSCH PRN IV 10/02/16 17:30 Clonidine 0.1 mg 0.1 mg Q6H PRN PO 10/02/16 17:30 (D5W-1/2 NS 1000 ml Inj) 1,000 ml @ 30 mls/hr Q24H IV 10/02/16 18:00 10/04/16 05:44 (Vasotec Inj) 2.5 mg Q6H PRN IV PUSH 10/02/16 17:30 (Lasix Inj) 40 mg BID@09,18 IV PUSH 10/02/16 18:00 10/04/16 10:05 (Protonix Inj) 40 mg BID IV PUSH 10/02/16 21:00 10/04/16 10:05 (Pill Splitter) 1 ea UNSCH PRN OTHER 10/02/16 18:15 Vital Signs / I&O Vital Signs Date Time Temp Pulse Resp B/P Pulse Ox O2 Delivery O2 Flow Rate FiO2 10/04/16 11:50 98.0 59 20 97/54 100 10/04/16 10:19 97 Nasal Cannula 2.00 10/04/16 07:50 97.5 54 20 100/54 97 10/04/16 04:07 96.8 70 16 107/68 96 10/04/16 00:00 97.8 112 18 120/72 95 10/03/16 21:00 96 Nasal Cannula 2.00 10/03/16 20:00 96.6 110 18 118/71 94 10/03/16 20:00 72 10/03/16 16:00 97.8 60 18 114/59 100 10/03/16 13:00 96.2 60 19 126/53 100 I/O 10/03/16 10/03/16 10/03/16 10/04/16 10/04/16 10/04/16 07:00 15:00 23:00 07:00 15:00 23:00 Intake Total 560 ml 360 ml 682 ml 521 ml Output Total 2250 ml 800 ml 1400 ml 400 ml Balance -1690 ml -440 ml -718 ml 121 ml Intake Oral 360 ml 450 ml 150 ml IV Total 210 ml 232 ml 371 ml Packed Cells 350 ml Output Urine Total 2250 ml 800 ml 1400 ml 400 ml # Bowel Movements 1 0 Physical Exam GENERAL: NAD SKIN: Warm and dry. HEAD: Atraumatic. Normocephalic. EYES: Pupils equal and round. No scleral icterus. No injection or drainage. ENT: No nasal bleeding or discharge. Mucous membranes pink and moist. NECK: Trachea midline. No JVD. CARDIOVASCULAR: Regular rate and rhythm. RESPIRATORY: No accessory muscle use. Clear to auscultation. Breath sounds equal bilaterally. GASTROINTESTINAL: Abdomen soft, non-tender, nondistended. Hepatic and splenic margins not palpable. MUSCULOSKELETAL: Extremities without clubbing, cyanosis, or edema. No obvious deformities. NEUROLOGICAL: Awake and alert. No obvious cranial nerve deficits. PSYCHIATRIC: Pleasantly demented Laboratory Laboratory Tests Test 10/04/16 07:19 White Blood Count 7.8 TH/MM3 Red Blood Count 3.28 MIL/MM3 Hemoglobin 9.6 GM/DL Hematocrit 28.2 % Mean Corpuscular Volume 85.8 FL Mean Corpuscular Hemoglobin 29.2 PG Mean Corpuscular Hemoglobin 34.0 % Concent Red Cell Distribution Width 17.4 % Platelet Count 223 TH/MM3 Mean Platelet Volume 8.0 FL Neutrophils (%) (Auto) 69.8 % Lymphocytes (%) (Auto) 20.6 % Monocytes (%) (Auto) 5.9 % Eosinophils (%) (Auto) 2.7 % Basophils (%) (Auto) 1.0 % Neutrophils # (Auto) 5.5 TH/MM3 Lymphocytes # (Auto) 1.6 TH/MM3 Monocytes # (Auto) 0.5 TH/MM3 Eosinophils # (Auto) 0.2 TH/MM3 Basophils # (Auto) 0.1 TH/MM3 CBC Comment DIFF FINAL Differential Comment Sodium Level 143 MEQ/L Potassium Level 3.8 MEQ/L Chloride Level 104 MEQ/L Carbon Dioxide Level 31.4 MEQ/L Anion Gap 8 MEQ/L Blood Urea Nitrogen 34 MG/DL Creatinine 1.36 MG/DL Estimat Glomerular Filtration 50 ML/MIN Rate Random Glucose 87 MG/DL Calcium Level 7.6 MG/DL Assessment and Plan Problem List: (1) GI bleed (2) Anemia (3) Atrial fibrillation Assessment and Plan 1) Questionable wide complex tachycardia, Afib with RVR... 1-2 episodes over night, short in nature 2) Continue medical management with BB/Dig 3) GI bleed conservative treatment 4) Will see PRN, call with questions Problem Qualifiers (1) GI bleed: Qualified Code: K92.2 - Gastrointestinal hemorrhage, unspecified gastrointestinal hemorrhage type (2) Anemia: Qualified Code: D64.9 - Anemia, unspecified type Yaya West DO Oct 04, 2016 12:42
[2016-10-04] MEDS ORDERED: SODIUM CHLOR 0.9% 250 ML INJ 250 ML IV ONE (16:00)
== END 2016-10-04 18:21 ==
LOC: NEPA 13:28 → INTOOBSV 16:31 → NEDA 16:31 → HOCB 18:59
PROVIDERS: ADMIT Family Medicine; ATTEND Family Medicine
DX: D50.0 Iron deficiency anemia secondary to blood loss (chronic) (principal); K92.2 Gastrointestinal hemorrhage, unspecified; I48.2 Chronic atrial fibrillation; I47.2 Ventricular tachycardia; I13.0 Hypertensive heart and chronic kidney disease with heart failure and stage 1 through stage 4 chronic kidney disease, or unspecified chronic kidney disease; N18.9 Chronic kidney disease, unspecified; I25.10 Atherosclerotic heart disease of native coronary artery without angina pectoris; J44.9 Chronic obstructive pulmonary disease, unspecified; E03.9 Hypothyroidism, unspecified; E78.5 Hyperlipidemia, unspecified; F03.90 Unspecified dementia, unspecified severity, without behavioral disturbance, psychotic disturbance, mood disturbance, and anxiety; Z88.2 Allergy status to sulfonamides; Z86.73 Personal history of transient ischemic attack (TIA), and cerebral infarction without residual deficits; Z95.1 Presence of aortocoronary bypass graft; Z79.01 Long term (current) use of anticoagulants; Z95.0 Presence of cardiac pacemaker
CPT/HCPCS: 36430; 80048; 80053; 84155; 85025; 85610; 85730; 86850; 86900; 86901; 86920; C9113; G0378; G8987-GO; G8988-GO; J1940; J7050; P9016